=== PATIENT | female | born 1985 | race African-American/Black ===

== ENCOUNTER 2024-04-14 04:27 | Emergency (ER) | payer MEDICAID ==
[~2024-04-14] VITALS: Ht 175.3 cm; Wt 104.0 kg
[2024-04-14 04:42] VITALS: PULSE 110; O2SAT 99
[2024-04-14 04:45] VITALS: BP 145/105; RESP 18; TEMP 98; O2SAT 100
[2024-04-14] MEDS ORDERED: METR-167 MT (05:37)
[2024-04-14] MEDS ORDERED: CIPR2.5D20 LEFTEYE (05:39)
[2024-04-14] MEDS ORDERED: METRONIDAZOLE 500MG TABLET PO SCH (06:00)
[2024-04-14] MEDS ORDERED: CIPROFLOXACIN 0.3% OPHTH SOLN 2.5ML LEFTEYE SCH (09:00)
== END 2024-04-14 05:52 | disposition home or self-care (01) ==
LOC: ER 04:43
DX: H10.89 Other conjunctivitis (principal); I10 Essential (primary) hypertension
CPT/HCPCS: 87210; 99283

== ENCOUNTER 2024-06-29 05:41 | Emergency (ER) | payer MEDICAID ==
[~2024-06-29] VITALS: Ht 175.3 cm; Wt 270.0 kg
[~2024-06-29 05:41] MED LIST: CIPR2.5D20 LEFTEYE; METR-167 MT
[2024-06-29 05:49] VITALS: O2SAT 98
[2024-06-29 05:58] VITALS: BP 168/92
[2024-06-29] MEDS ORDERED: DOXY100T2 MT (09:21)
[2024-06-29] MEDS ORDERED: METR-167 MT (09:21)
[2024-06-29] MEDS ORDERED: TRIMO EACHEYE (09:21)
[2024-06-29] MEDS ORDERED: LISI20TA31 MT (10:17)
[2024-06-29] MEDS: CEFTRIAXONE SODIUM 1G VIAL IM ONE (10:20)
[2024-06-29] MEDS: LIDOCAINE HCL 1% 20ML VIAL INFIL ONE (10:21)
[2024-06-29 10:22] VITALS: PULSE 89; RESP 16; TEMP 36.94740; O2SAT 98
[2024-07-01 19:06] LABS: CHLAMYDIA TRACHOMATIS NAA Negative (Negative); NEISSERIA GONORRHOEAE NAA Negative (Negative)
== END 2024-06-29 10:26 | disposition home or self-care (01) ==
LOC: ER 06:02
DX: H10.89 Other conjunctivitis (principal); I10 Essential (primary) hypertension; Z20.2 Contact with and (suspected) exposure to infections with a predominantly sexual mode of transmission; Z79.899 Other long term (current) drug therapy
CPT/HCPCS: 87491; 87591; 87210; 96372; 99283; J0696; J3490; Z7610 ×2

== ENCOUNTER 2024-09-24 12:37 | Emergency (ER) | payer MEDICAID ==
[~2024-09-24] VITALS: Ht 177.8 cm; Wt 94.0 kg
[~2024-09-24 12:37] MED LIST changes: +DOXY100T2 MT; +LISI20TA31 MT; +TRIMO EACHEYE
[2024-09-24 12:57] VITALS: O2SAT 100
[2024-09-24] MEDS: CEFTRIAXONE SODIUM 500MG VIAL IM ONE (14:10)
[2024-09-24] MEDS ORDERED: DOXY100C5 MT (15:01)
[2024-09-24] MEDS ORDERED: ERYT1OIN6 EACHEYE (15:01)
[2024-09-24 15:23] LABS: CLARITY URINE CLOUDY (CLEAR); COLOR URINE YELLOW (YELLOW); GLUCOSE URINE NEGATIVE (NEGATIVE); KETONES URINE 2+ (NEGATIVE); LEUKOCYTE ESTERASE URINE NEGATIVE (NEGATIVE); NITRITE URINE NEGATIVE (NEGATIVE); OCCULT BLOOD URINE NEGATIVE (NEGATIVE); PROTEIN URINE TRACE (NEGATIVE); SPECIFIC GRAVITY URINE 1.024 (1.005-1.030)
[2024-09-24 15:39] LABS: BACTERIA URINE 3+; RBC URINE 0-2 /hpf (0-2); SQUAMOUS EPITHELIAL CELL URINE 3+ /lpf (RARE/1+); YEAST URINE NONE SEEN
[2024-09-24] MEDS ORDERED: LISI20TA31 MT (15:48)
[2024-09-24 15:55] VITALS: BP 143/84; PULSE 93; RESP 18; TEMP 37.2; O2SAT 100
[2024-09-27 04:07] LABS: CHLAMYDIA TRACHOMATIS NAA Negative (Negative); NEISSERIA GONORRHOEAE NAA Negative (Negative)
== END 2024-09-24 15:58 | disposition home or self-care (01) ==
LOC: ER 12:37
DX: A54.89 Other gonococcal infections (principal); H10.89 Other conjunctivitis; I10 Essential (primary) hypertension; Z11.3 Encounter for screening for infections with a predominantly sexual mode of transmission; Z11.8 Encounter for screening for other infectious and parasitic diseases; Z76.0 Encounter for issue of repeat prescription; Z79.899 Other long term (current) drug therapy
CPT/HCPCS: 99283; 86592; 87491; 87591; 81003; 36415; 96372; J0696